=== PATIENT | male | born 2000 | race Caucasian/White ===

== ENCOUNTER 2019-06-23 00:11 | Emergency (ER) | payer OTHER ==
[2019-06-23 01:11] VITALS: BP 130/68; PULSE 71; TEMP 98.2; BMI 27.4
--- NOTE | 2019-06-23 01:32 | PDOC ---
History of Present Illness - General Chief Complaint: Shortness of Breath Stated Complaint: DIFFICULTY BREATHING Time Seen by Provider: 06/23/19 00:59 History Source: Patient Exam Limitations: No Limitations - History of Present Illness Initial Comments: 06/23/19 01:10 HPI: 19yo M with PMH remote asthma requiring infrequent albuterol, now "resolved " presenting with shortness of breath for 2-3 days. Patient reports he experiences the inability to get a full satisfying breath after he doesn't eat for a long time and is at rest. No exertional or positional SOB, no wheezes, no cough. Took mother's montelukast at home and felt better. Denies lightheadedness , dizziness, palpitations, CP, abdominal pain, recent illness, recent travel, smoking, sick contacts. Denies feeling anxious, palpitations, irregular heart beat. No noxious fumes, no prior episodes. No bleeding, no dark or tarry stools. No FHx bleeding disorders. No other symptoms of any kind reported. Scheduled for appointment with PCP on July 04. KNDA Meds: denies PMH: denies (remote asthma) PSH: denies SHx: Never smoker, no second hand smoke, occasional marijuana, no vaping FHx: Brother with asthma, no other lung disorders Past History - Travel Traveled outside of the country in the last 30 days: No Close contact w/someone who was outside of country & ill: No - Past Medical History Allergies/Adverse Reactions: Allergies Allergy/AdvReac Type Severity Reaction Status Date / Time No Known Allergies Allergy Verified 06/23/19 00:53 Home Medications: Ambulatory Orders NK [No Known Home Medication] 06/23/19 Asthma: Yes - Immunization History Immunization Up to Date: No - Suicide/Smoking/Psychosocial Hx Smoking History: Never smoked Have you smoked in the past 12 months: No Information on smoking cessation initiated: No Hx Alcohol Use: No Drug/Substance Use Hx: No Substance Use Type: None Review of Systems - Review of Systems Able to Perform ROS?: Yes Is the patient limited Peruvian proficient: Yes Constitutional: No: Symptoms Reported, Chills, Fever HEENTM: No: Symptoms Reported, Recent change in vision, Nose Pain, Nose Congestion, Throat Pain, Throat Swelling Respiratory: Yes: Symptoms reported, See HPI, Shortness of Breath. No: Cough, Orthopnea, SOB with Exertion, Wheezing Cardiac (ROS): No: Symptoms Reported, Chest Pain, Edema, Irregular Heart Rate, Palpitations, Syncope, Chest Tightness ABD/GI: No: Symptoms Reported, Constipated, Diarrhea, Nausea, Poor Appetite, Poor Fluid Intake, Vomiting : No: Burning, Dysuria, Hematuria Musculoskeletal: No: Back Pain, Muscle Pain, Muscle Weakness Integumentary: No: Bruising, Pallor, Pruritus, Rash Neurological: No: Headache, Numbness, Tingling, Weakness, Dizziness Psychiatric: No: Anxiety, Change in Appetite Endocrine: No: Flushing, Increased Thirst, Increased Urine, Change in Weight Hematologic/Lymphatic: No: Anemia All Other Systems: Reviewed and Negative *Physical Exam - Vital Signs Last Vital Signs Temp Pulse Resp BP Pulse Ox 98.2 F 71 18 130/68 97 06/23/19 00:20 06/23/19 00:20 06/23/19 00:20 06/23/19 00:20 06/23/19 00:20 - Physical Exam Comments: 06/23/19 01:58 Vitals reviewed: AFVSS Gen: WDWN man, appears stated age, no acute distress HEENT: EOMI, MMM, NCAT, no pallor CV: RRR, nl s1/s2, no murmurs Pulm: CTABL, no wheezes, normal WOB, speaking full sentences without any difficulty Abd: Soft, nontender, nondistended Ext: WWP, capillary refill <2sec, no clubbing / cyanosis / edema Skin: warm, dry, no rashes evident, well perfused Pulses: 2+ radial, PT Neuro: Alert and Oriented, CN grossly intact, MAEE Medical Decision Making - Medical Decision Making 06/23/19 01:32 19yo M PMH mild asthma with "inability to get a full breath" for 2-3 days. Patient denies all other symptoms. Physical exam notable for normal lungs, normal comfortable breathing, normal vitals. Patient has appointment scheduled with PCP for July 04. No signs of organic disease. DDX includes resolved asthma exacerbation, resolved URI, anemia (no FHx, risk factors, signs), and unlikely interstitial lung disease. -CXR PA and Lateral *DC/Admit/Observation/Transfer Diagnosis at time of Disposition: Mild shortness of breath - Discharge Dispostion Disposition: HOME Condition at time of disposition: Good Decision to Admit order: No - Referrals Referrals: Edwin Boateng [Primary Care Provider] - - Patient Instructions Additional Instructions: Please follow up with your primary care doctor at your July 04 appointment. Please return to the emergency department for any new or concerning symptoms including but not limited to: worsening shortness of breath, wheezing, fevers/ chills, chest pain. - Post Discharge Activity
--- NOTE | 2019-06-23 04:31 | PDOC ---
Attending Attestation - Resident Resident Name: Jose Armstrong - ED Attending Attestation I have performed the following: I have examined & evaluated the patient, The case was reviewed & discussed with the resident, I agree w/resident's findings & plan, Exceptions are as noted - HPI HPI: 06/23/19 08:14 19M PMH asthma here with several days of dyspnea, but no current active symptoms. No other complaints. - Physicial Exam PE: 06/23/19 08:15 Agree with exam as documented by resident - Medical Decision Making 06/23/19 08:15 No active symptoms, likely resolved exacerbation of asthma f/u cxr cxr w/o acute pathology DC home
== END 2019-06-23 02:43 | disposition home or self-care (01) ==
LOC: JER 00:11
DX: R06.02 Shortness of breath (principal)
CPT/HCPCS: 71046-TC-FY; 99281-25

== ENCOUNTER 2021-11-07 10:34 | Emergency (ER) | payer OTHER ==
[2021-11-07 10:53] VITALS: BP 120/74; PULSE 70; TEMP 98; BMI 28.0
== END 2021-11-07 11:45 | disposition home or self-care (01) ==
LOC: JERFT 10:34
DX: R51.9 Headache, unspecified (principal); V89.2XXA Person injured in unspecified motor-vehicle accident, traffic, initial encounter; Y92.9 Unspecified place or not applicable
CPT/HCPCS: 99283-25

== ENCOUNTER 2021-12-30 14:20 | Emergency (ER) | payer OTHER ==
[2021-12-30 14:25] VITALS: BP 132/62; PULSE 83; TEMP 98; BMI 26.4
[2021-12-31 11:08] LABS: SARS-CoV-2 NAA Not Detected (Not Detected)
== END 2021-12-30 18:26 | disposition home or self-care (01) ==
LOC: JER 14:20
DX: B34.9 Viral infection, unspecified (principal)
CPT/HCPCS: 87804; 99283-25; C9803-CS; U0003; U0005

== ENCOUNTER 2022-04-09 11:34 | Emergency (ER) | payer OTHER ==
[2022-04-09 11:55] VITALS: TEMP 98.6; BMI 26.4
[2022-04-09] MEDS ORDERED: SODIUM CHLORIDE 0.9% 500 ML INFUS.BAG IV ONE (12:23)
[2022-04-09] MEDS ORDERED: ONDANSETRON 4 MG/2 ML VIAL IVPUSH ONE (12:23)
[2022-04-09] MEDS ORDERED: ONDANSETRON 4 MG/2 ML VIAL ONE (13:22)
[2022-04-09 13:59] LABS: BASO % 0.4 % (0-2.0); EOS % 1.2 % (0-4.5); HEMATOCRIT 48.7 % (35.4-49); HEMOGLOBIN 16.2 GM/dL (11.7-16.9); LYMPH % 26.3 % (8-40); MCH 28.7 pg (25.7-33.7); MCHC 33.2 g/dl (32.0-35.9); MEAN CELL VOLUME 86.4 fl (80-96); MEAN PLT VOLUME 10.3 fl (7.5-11.1); MONO % 6.3 % (3.8-10.2); NEUT % 65.8 % (42.8-82.8); PLATELET COUNT 227 10^3/uL (134-434); RBC 5.64 M/mm3 (4.00-5.60); RDW 13.8 % (11.9-15.9); WHITE BLOOD COUNT 8.5 K/mm3 (4.0-10.0)
[2022-04-09 14:20] LABS: ALBUMIN 4.5 g/dl (3.4-5.0); CALCIUM 9.5 mg/dL (8.5-10.1)
[2022-04-09 14:21] LABS: BLOOD UREA NITROGEN 15.3 mg/dL (7-18)
[2022-04-09 14:23] LABS: CREATININE 0.9 mg/dL (0.55-1.3)
[2022-04-09 14:25] LABS: BILIRUBIN,TOTAL 0.5 mg/dL (0.2-1)
[2022-04-09 16:20] VITALS: BP 119/67; PULSE 66
== END 2022-04-09 16:20 | disposition home or self-care (01) ==
LOC: JER 11:34
PROC: 3E033NZ Introduction of Analgesics, Hypnotics, Sedatives into Peripheral Vein, Percutaneous Approach (ICD-10-PCS; principal; 2022-04-09)
DX: R11.10 Vomiting, unspecified (principal)
CPT/HCPCS: 36415; 80053; 83690; 85025; 99284-25